=== PATIENT | female | born 2000 | race Caucasian/White ===

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

== ENCOUNTER 2020-05-04 17:39 | Emergency (ER) | payer OTHER ==
[2020-05-04 17:46] VITALS: BP 124/66; PULSE 79; TEMP 99.1; BMI 24.0
[2020-05-04 18:47] LABS: HCG,QUALITATIVE URINE Positive
[2020-05-04 18:51] LABS: EPI CELLS >36 /uL (0-25.1); HYALINE CASTS 1 /uL (0-3.1); PH,URINE 8.5 (5.0-8.0); URINE APPEARANCE TURBID; URINE BACTERIA 683 /uL (0-1359); URINE BILIRUBIN NEGATIVE (NEGATIVE); URINE COLOR YELLOW; URINE GLUCOSE (UA) NEGATIVE (NEGATIVE); URINE KETONE NEGATIVE (NEGATIVE); URINE LEUK ESTERASE 1+ (NEGATIVE); URINE NITRITE NEGATIVE (NEGATIVE); URINE PROTEIN NEGATIVE (NEGATIVE); URINE RBC 4 /uL (0-23.9); URINE WBC 33 /uL (0-25.8)
== END 2020-05-04 19:18 | disposition home or self-care (01) ==
LOC: JERFT 17:39
DX: O21.1 Hyperemesis gravidarum with metabolic disturbance (principal); Z32.01 Encounter for pregnancy test, result positive
CPT/HCPCS: 81003; 84703; 87086; 99283-25

== ENCOUNTER 2021-02-07 13:47 | Emergency (ER) | payer OTHER ==
[2021-02-07 13:54] VITALS: BP 138/77; PULSE 80; TEMP 98.5; BMI 24.7
== END 2021-02-07 16:18 | disposition home or self-care (01) ==
LOC: JER 13:47
DX: J06.9 Acute upper respiratory infection, unspecified (principal)
CPT/HCPCS: 99283-25; C9803; U0003; U0005